=== PATIENT | female | born 1960 | race African-American/Black ===

== ENCOUNTER 2017-02-23 09:37 | Inpatient (IN) ==
[2017-02-23] MEDS ORDERED: CALCIUM CHLORIDE 1,000 MG/10 ML SYRINGE IV STA (09:39)
[2017-02-23] MEDS ORDERED: ONDANSETRON 4 MG/2 ML VIAL IV STA (09:39)
[2017-02-23] MEDS ORDERED: SODIUM BICARBONATE 50 MEQ/50 ML VIAL IV STA (09:41)
[2017-02-23 09:54] LABS: Basophils % 0.2 % (0.0-0.8); Eosinophils # 0.1 10*3/uL (0.0-0.87); Eosinophils % 1.2 % (0.00-10.9); Hematocrit 32.2 VOL% (35.7-47.0); Immature Granulocytes % 0.5 %; Immature Granulocytes Absolute 0.05 #; Lymphocytes # 2.2 10*3/uL (1.4-4.0); Lymphocytes % 23.8 % (21.3-54.2); Mean Corpuscular HGB Conc 31.1 GM/DL (32-36); Mean Corpuscular Hemoglobin 27 PG (27-34); Mean Platelet Volume 12.3 FL (9.6-12.0); Monocytes # 0.5 10*3/uL (0.11-0.8); Monocytes % 5.4 % (1.7-12.7); Neutrophils # 6.4 10*3/uL (1.4-7.4); Neutrophils % 68.9 % (38.7-73.9); Platelet Count 136 T/CUMM (130-400); Red Blood Count 3.66 MC/CUMM (3.8-5.5); Red Cell Distribution Width 15.6 % (9.3-17.3); White Blood Count 9.3 T/CUMM (4-12)
[2017-02-23 10:03] LABS: INR 1.1; PT Patient Result 11.4 SECS
[2017-02-23 10:09] LABS: ABG Base Excess 2.3 MMOL/L (-2.5-2.5); ABG HCO3 26.3 MMOL/L (20-26); ABG Oxygen Saturation 90.2 % (95-100); ABG PCO2 41.4 MM HG (35-48); ABG PH 7.421 (7.35-7.45); ABG TCO2 24.7 MMOL/L (23-27)
[2017-02-23 11:30] LABS: Alanine Aminotransferase 69 U/L (13-56); Albumin 3.7 G/DL (3.4-5.0); Alkaline Phosphatase 93 U/L (45-117); Aspartate Amino Transferase 88 U/L (0-37); Blood Urea Nitrogen 55 MG/DL (7-18); Calcium 9.2 MG/DL (8.5-10.1); Glucose 254 MG/DL (74-106); Magnesium 2.4 MG/DL (1.8-2.4); Sodium 136 MMOL/L (136-145); Total Protein 7.6 G/DL (6.4-8.3); Troponin I Only < 0.015 NG/ML (0.00-0.045)
[2017-02-23] MEDS ORDERED: ALBUTEROL 2.5 MG/3 ML NEB RESP TX PRN (13:51)
[2017-02-23] MEDS ORDERED: ONDANSETRON 4 MG/2 ML VIAL IV PRN (13:51)
[2017-02-23] MEDS ORDERED: GLUCAGON 1 MG VIAL IM PRN (14:43)
[2017-02-23] MEDS ORDERED: DEXTROSE 50% 25 GM/50 ML VIAL IV PRN (14:43)
[2017-02-23] MEDS ORDERED: CALCIUM GLUCONATE 1,000 MG in SODIUM CHLORIDE 0.9% 100 ML IV ONE (15:00)
[2017-02-23 15:18] LABS: Calcium 8.7 MG/DL (8.5-10.1); Magnesium 2.2 MG/DL (1.8-2.4); Osmolality,Calculated 283.8 MOS/KG (273-304); Potassium 5.9 MMOL/L (3.5-5.1)
[2017-02-23] MEDS ORDERED: hydrALAZINE 20 MG/1 ML VIAL IV PRN (16:08)
[2017-02-23] MEDS: INSULIN LISPRO 100 UNIT/ML SUBCUT SCH ×2 (16:21→22:07)
[2017-02-23] MEDS: amLODIPine 10 MG TABLET PO SCH (16:23)
[2017-02-23] MEDS: CINACALCET 30 MG TABLET PO SCH (18:13)
[2017-02-23] MEDS: CALCIUM ACETATE 667 MG CAPSULE PO SCH (18:13)
[2017-02-23] MEDS ORDERED: ALUMINUM/MAGNES/SIMETH MAX STR 30 ML UDCUP PO PRN (22:06)
[2017-02-23] MEDS: INSULIN GLARGINE 100 UNIT/ML SUBCUT SCH (22:07)
[2017-02-23] MEDS ORDERED: ACETAMINOPHEN 325 MG TABLET PO PRN (23:54)
[2017-02-24 05:43] LABS: Basophils % 0.3 % (0.0-0.8); Eosinophils # 0.1 10*3/uL (0.0-0.87); Eosinophils % 2.2 % (0.00-10.9); Hematocrit 29.3 VOL% (35.7-47.0); Hemoglobin 9.1 GM/DL (12.0-16.0); Immature Granulocytes % 0.5 %; Immature Granulocytes Absolute 0.03 #; Lymphocytes # 1.2 10*3/uL (1.4-4.0); Lymphocytes % 21.4 % (21.3-54.2); Mean Corpuscular HGB Conc 31.1 GM/DL (32-36); Mean Corpuscular Hemoglobin 27 PG (27-34); Mean Corpuscular Volume 86.7 FL (87-102); Mean Platelet Volume 11.9 FL (9.6-12.0); Monocytes # 0.4 10*3/uL (0.11-0.8); Monocytes % 7.2 % (1.7-12.7); Neutrophils % 68.4 % (38.7-73.9); Platelet Count 161 T/CUMM (130-400); Red Blood Count 3.38 MC/CUMM (3.8-5.5); Red Cell Distribution Width 15.3 % (9.3-17.3); White Blood Count 5.8 T/CUMM (4-12)
[2017-02-24 06:11] LABS: Calcium 8.5 MG/DL (8.5-10.1); Osmolality,Calculated 279.7 MOS/KG (273-304); Potassium 5.5 MMOL/L (3.5-5.1)
[2017-02-24] MEDS: INSULIN LISPRO 100 UNIT/ML SUBCUT SCH ×4 (09:14→21:44)
[2017-02-24] MEDS: DOXAZOSIN 1 MG TABLET PO SCH (09:19)
[2017-02-24] MEDS: amLODIPine 10 MG TABLET PO SCH (09:19)
[2017-02-24] MEDS: CALCIUM ACETATE 667 MG CAPSULE PO SCH ×3 (09:19→17:31)
[2017-02-24] MEDS: SERTRALINE 50 MG TABLET PO SCH (09:19)
[2017-02-24] MEDS: CARVEDILOL 25 MG TABLET PO SCH (09:20)
[2017-02-24] MEDS: PANTOPRAZOLE 40 MG TABLET PO SCH (09:20)
[2017-02-24] MEDS: GABAPENTIN 600 MG TABLET PO SCH (09:20)
[2017-02-24] MEDS: CINACALCET 30 MG TABLET PO SCH (17:31)
[2017-02-24] MEDS: INSULIN GLARGINE 100 UNIT/ML SUBCUT SCH (21:44)
[2017-02-25 06:46] LABS: Basophils % 0.4 % (0.0-0.8); Eosinophils # 0.1 10*3/uL (0.0-0.87); Eosinophils % 2.7 % (0.00-10.9); Hematocrit 28.6 VOL% (35.7-47.0); Hemoglobin 9.1 GM/DL (12.0-16.0); Immature Granulocytes % 0.6 %; Immature Granulocytes Absolute 0.03 #; Lymphocytes # 1.2 10*3/uL (1.4-4.0); Lymphocytes % 22.2 % (21.3-54.2); Mean Corpuscular HGB Conc 31.8 GM/DL (32-36); Mean Corpuscular Hemoglobin 28 PG (27-34); Mean Corpuscular Volume 87.2 FL (87-102); Mean Platelet Volume 11.7 FL (9.6-12.0); Monocytes # 0.5 10*3/uL (0.11-0.8); Monocytes % 8.6 % (1.7-12.7); Neutrophils # 3.4 10*3/uL (1.4-7.4); Neutrophils % 65.5 % (38.7-73.9); Platelet Count 151 T/CUMM (130-400); Red Blood Count 3.28 MC/CUMM (3.8-5.5); Red Cell Distribution Width 15.3 % (9.3-17.3); White Blood Count 5.2 T/CUMM (4-12)
[2017-02-25 07:10] LABS: Calcium 7.9 MG/DL (8.5-10.1); Osmolality,Calculated 288.7 MOS/KG (273-304)
[2017-02-25 07:11] LABS: Potassium 6.1 MMOL/L (3.5-5.1)
[2017-02-25 08:32] VITALS: BP 141/67
[2017-02-25] MEDS: INSULIN LISPRO 100 UNIT/ML SUBCUT SCH ×2 (11:45→14:35)
[2017-02-25] MEDS: CALCIUM ACETATE 667 MG CAPSULE PO SCH ×2 (11:45→14:23)
[2017-02-25] MEDS: amLODIPine 10 MG TABLET PO SCH (14:23)
[2017-02-25] MEDS: CARVEDILOL 25 MG TABLET PO SCH (14:24)
[2017-02-25] MEDS: SERTRALINE 50 MG TABLET PO SCH (14:24)
[2017-02-25] MEDS: GABAPENTIN 600 MG TABLET PO SCH (14:24)
[2017-02-25] MEDS: PANTOPRAZOLE 40 MG TABLET PO SCH (14:24)
[2017-02-25] MEDS: DOXAZOSIN 1 MG TABLET PO SCH (14:24)
== END 2017-02-25 17:20 | disposition home or self-care (01) | DRG 640 ==
LOC: N.ED 09:37 → EDUNIT# 09:37 → SUATTDRO 11:53 → N.EDINP 11:53 → N.ICU 13:42 → N.5E 02-24 15:52
PROVIDERS: ADMIT Internal Medicine; ATTEND Internal Medicine Nephrology

== ENCOUNTER 2018-01-04 09:09 | Inpatient (IN) ==
[2018-01-04] MEDS ORDERED: ONDANSETRON 4 MG/2 ML VIAL IV STA (09:21)
[2018-01-04] MEDS ORDERED: INSULIN REGULAR 100 UNIT/ML ONE (09:25)
[2018-01-04] MEDS ORDERED: EPINEPHrine 1 MG/10 ML SYRINGE IV STA ×2 (09:32→09:34)
[2018-01-04] MEDS ORDERED: VECURONIUM 10 MG VIAL IV STA (09:33)
[2018-01-04] MEDS ORDERED: ETOMIDATE 20 MG/10 ML VIAL IV STA (09:33)
[2018-01-04] MEDS ORDERED: CALCIUM CHLORIDE 1,000 MG/10 ML SYRINGE IV STA (09:33)
[2018-01-04] MEDS ORDERED: DEXTROSE 50% 25 GM/50 ML VIAL IV STA (09:34)
[2018-01-04] MEDS ORDERED: SODIUM BICARBONATE 50 MEQ/50 ML VIAL IV STA (09:34)
[2018-01-04] MEDS ORDERED: INSULIN REGULAR 100 UNIT/ML IV STA (09:34)
[2018-01-04] MEDS ORDERED: ROCURONIUM 100 MG/10 ML VIAL IV STA (09:35)
[2018-01-04] MEDS ORDERED: ONDANSETRON 4 MG/2 ML VIAL ONE (09:40)
[2018-01-04 09:51] LABS: Basophils % 0.3 % (0.0-0.8); Eosinophils # 0.1 10*3/uL (0.0-0.87); Hematocrit 31.4 VOL% (35.7-47.0); Hemoglobin 9.7 GM/DL (12.0-16.0); Immature Granulocytes % 0.7 %; Immature Granulocytes Absolute 0.05 #; Lymphocytes # 2.8 10*3/uL (1.4-4.0); Lymphocytes % 38.6 % (21.3-54.2); Mean Corpuscular HGB Conc 30.9 GM/DL (32-36); Mean Corpuscular Hemoglobin 29 PG (27-34); Mean Corpuscular Volume 92.4 FL (87-102); Mean Platelet Volume 13.5 FL (9.6-12.0); Monocytes # 0.2 10*3/uL (0.11-0.8); Monocytes % 3.2 % (1.7-12.7); Neutrophils % 56.2 % (38.7-73.9); Platelet Count 95 T/CUMM (130-400); White Blood Count 7.1 T/CUMM (4-12)
[2018-01-04] MEDS ORDERED: LIDOCAINE 1% 20 ML VIAL ONE (10:15)
[2018-01-04 10:16] LABS: Albumin 2.8 G/DL (3.4-5.0); Bilirubin,Total 0.4 MG/DL (0.2-1.0); Hypochromasia 1+; Thyroid Stimulating Hormone 2.95 uIU/ml (0.358-3.74); Total Protein 6.6 G/DL (6.4-8.3)
[2018-01-04 10:28] LABS: Osmolality,Calculated 324.4 MOS/KG (273-304); Potassium 3.8 MMOL/L (3.5-5.1)
[2018-01-04 11:05] LABS: PT Patient Result 10.9 SECS
[2018-01-04] MEDS ORDERED: LACTULOSE 20 GM/30 ML UDCUP PO PRN (11:46)
[2018-01-04] MEDS ORDERED: ACETAMINOPHEN 325 MG TABLET PO PRN (11:46)
[2018-01-04] MEDS ORDERED: ALBUTEROL 2.5 MG/3 ML NEB RESP TX PRN (11:46)
[2018-01-04] MEDS ORDERED: ONDANSETRON 4 MG/2 ML VIAL IV PRN (11:46)
[2018-01-04] MEDS ORDERED: PANTOPRAZOLE 40 MG VIAL IV SCH (12:00)
[2018-01-04] MEDS ORDERED: INSULIN LISPRO 100 UNIT/ML SUBCUT SCH (12:00)
[2018-01-04] MEDS ORDERED: ENOXAPARIN 30 MG/0.3 ML SYRINGE SUBCUT SCH (12:00)
[2018-01-04] MEDS: PROPOFOL 1,000 MG/100 ML BOTTLE IV SCH (12:18)
[2018-01-04 12:20] LABS: Allen Test Positive; Pt O2 Delivery Device Ventilator
[2018-01-04 12:21] LABS: ABG Base Excess -3.7 MMOL/L (-2.5-2.5); ABG HCO3 21.4 MMOL/L (20-26); ABG Oxygen Saturation 99.8 % (95-100); ABG PCO2 39.2 MM HG (35-48); ABG PH 7.349 (7.35-7.45); ABG TCO2 19.7 MMOL/L (23-27)
[2018-01-04] MEDS ORDERED: LORazepam 2 MG/1 ML VIAL ONE (13:38)
[2018-01-04] MEDS ORDERED: LORazepam 2 MG/1 ML VIAL IV ONE (13:40)
[2018-01-04] MEDS ORDERED: GLUCAGON 1 MG VIAL IM PRN (14:14)
[2018-01-04] MEDS ORDERED: DEXTROSE 50% 25 GM/50 ML VIAL IV PRN (14:14)
[2018-01-04] MEDS ORDERED: POTASSIUM CHLORIDE RIDER 20 MEQ in PREMIX 1 EACH IV PRN (14:20)
[2018-01-04] MEDS ORDERED: MAGNESIUM SULF RIDER 1 GM in PREMIX 1 EACH IV PRN (14:24)
[2018-01-04 14:45] LABS: Calcium 9.1 MG/DL (8.5-10.1); Osmolality,Calculated 305.1 MOS/KG (273-304)
[2018-01-04 14:53] LABS: INR 1.1; PT Patient Result 11.6 SECS
[2018-01-04 15:16] LABS: Potassium 8.2 MMOL/L (3.5-5.1)
[2018-01-04 15:21] LABS: Troponin I 0.182 NG/ML (0.00-0.045)
[2018-01-04] MEDS ORDERED: CALCIUM GLUCONATE 1,000 MG/10 ML VIAL IV ONE (15:21)
[2018-01-04] MEDS ORDERED: SODIUM BICARBONATE 50 MEQ/50 ML SYRINGE IV ONE ×2 (15:21→15:36)
[2018-01-04] MEDS: CISATRACURIUM 200 MG in SODIUM CHLORIDE 0.9% 180 ML IV SCH (15:33)
[2018-01-04] MEDS: fentaNYL INJ 1,250 MCG in SODIUM CHLORIDE 0.9% 225 ML IV PRN ×2 (15:34→21:39)
[2018-01-04] MEDS ORDERED: CALCIUM GLUCONATE 1,000 MG in SODIUM CHLORIDE 0.9% 100 ML IV ONE (15:36)
[2018-01-04] MEDS ORDERED: INSULIN REGULAR 100 UNIT/ML SUBCUT SCH (16:00)
[2018-01-04] MEDS: FAMOTIDINE 20 MG/2 ML VIAL IV SCH (16:12)
[2018-01-04] MEDS: INSULIN REGULAR 100 UNIT/ML IV SCH ×2 (17:37→21:12)
[2018-01-04] MEDS: MORPHINE 4 MG/1 ML VIAL IV PRN (20:46)
[2018-01-04] MEDS ORDERED: CALCIUM ACETATE 667 MG CAPSULE PO SCH (21:00)
[2018-01-04 21:39] LABS: Basophils % 0.3 % (0.0-0.8); Eosinophils % 0.5 % (0.00-10.9); Hematocrit 35.1 VOL% (35.7-47.0); Immature Granulocytes % 0.8 %; Immature Granulocytes Absolute 0.05 #; Lymphocytes # 0.9 10*3/uL (1.4-4.0); Lymphocytes % 14.6 % (21.3-54.2); Mean Corpuscular HGB Conc 31.3 GM/DL (32-36); Mean Corpuscular Hemoglobin 28 PG (27-34); Mean Corpuscular Volume 90.5 FL (87-102); Mean Platelet Volume 13.4 FL (9.6-12.0); Monocytes # 0.4 10*3/uL (0.11-0.8); Monocytes % 6.8 % (1.7-12.7); Neutrophils # 4.8 10*3/uL (1.4-7.4); Platelet Count 122 T/CUMM (130-400); Red Blood Count 3.88 MC/CUMM (3.8-5.5); White Blood Count 6.3 T/CUMM (4-12)
[2018-01-04] MEDS: MINERAL OIL/PETROLATUM OPH OINT 3.5 GM TUBE BOTH EYES SCH (21:39)
[2018-01-04] MEDS: hydrALAZINE 20 MG/1 ML VIAL IV PRN (21:39)
[2018-01-04 21:46] LABS: INR 1.1; PT Patient Result 11.1 SECS; Partial Thromboplastin Time 25.9 SECS (0-40)
[2018-01-04 21:48] LABS: Calcium 9.6 MG/DL (8.5-10.1); Osmolality,Calculated 282.8 MOS/KG (273-304); Potassium 4.2 MMOL/L (3.5-5.1)
[2018-01-04] MEDS: niCARdipine INJ 25 MG in SODIUM CHLORIDE 0.9% 240 ML IV PRN (22:44)
[2018-01-05] MEDS: fentaNYL INJ 2,500 MCG in SODIUM CHLORIDE 0.9% 450 ML IV PRN ×3 (00:54→19:57)
[2018-01-05] MEDS: PROPOFOL 1,000 MG/100 ML BOTTLE IV SCH ×2 (01:12→17:14)
[2018-01-05] MEDS: INSULIN REGULAR 100 UNIT/ML IV SCH ×8 (01:13→22:32)
[2018-01-05 02:41] LABS: Basophils % 0.3 % (0.0-0.8); Eosinophils % 0.5 % (0.00-10.9); Hematocrit 33.7 VOL% (35.7-47.0); Hemoglobin 10.8 GM/DL (12.0-16.0); Immature Granulocytes % 0.5 %; Immature Granulocytes Absolute 0.03 #; Lymphocytes # 0.7 10*3/uL (1.4-4.0); Lymphocytes % 10.9 % (21.3-54.2); Mean Corpuscular Hemoglobin 29 PG (27-34); Mean Corpuscular Volume 89.4 FL (87-102); Mean Platelet Volume 12.8 FL (9.6-12.0); Monocytes # 0.6 10*3/uL (0.11-0.8); Monocytes % 9.5 % (1.7-12.7); Neutrophils % 78.3 % (38.7-73.9); Platelet Count 100 T/CUMM (130-400); Red Blood Count 3.77 MC/CUMM (3.8-5.5); Red Cell Distribution Width 14.8 % (9.3-17.3); White Blood Count 6.3 T/CUMM (4-12)
[2018-01-05 02:58] LABS: Calcium 8.7 MG/DL (8.5-10.1); Osmolality,Calculated 291.4 MOS/KG (273-304); Potassium 4.3 MMOL/L (3.5-5.1)
[2018-01-05 03:01] LABS: Lactic Acid 1.7 MMOL/L (0.4-2.0)
[2018-01-05 03:09] LABS: INR 1.1; PT Patient Result 11.6 SECS; Partial Thromboplastin Time 24.9 SECS (0-40)
[2018-01-05 04:32] LABS: ABG Base Excess -1.9 MMOL/L (-2.5-2.5); ABG HCO3 22.8 MMOL/L (20-26); ABG Oxygen Saturation 99.3 % (95-100); ABG PH 7.472 (7.35-7.45); ABG TCO2 17.7 MMOL/L (23-27)
[2018-01-05 04:40] LABS: Basophils % 0.4 % (0.0-0.8); Eosinophils % 0.6 % (0.00-10.9); Hematocrit 32.7 VOL% (35.7-47.0); Hemoglobin 10.2 GM/DL (12.0-16.0); Immature Granulocytes % 0.4 %; Immature Granulocytes Absolute 0.02 #; Lymphocytes # 0.7 10*3/uL (1.4-4.0); Lymphocytes % 13.1 % (21.3-54.2); Mean Corpuscular HGB Conc 31.2 GM/DL (32-36); Mean Corpuscular Hemoglobin 28 PG (27-34); Mean Corpuscular Volume 90.8 FL (87-102); Mean Platelet Volume 12.6 FL (9.6-12.0); Monocytes # 0.5 10*3/uL (0.11-0.8); Monocytes % 9.1 % (1.7-12.7); Neutrophils # 4.1 10*3/uL (1.4-7.4); Neutrophils % 76.4 % (38.7-73.9); Platelet Count 104 T/CUMM (130-400); Red Cell Distribution Width 14.9 % (9.3-17.3); White Blood Count 5.4 T/CUMM (4-12)
[2018-01-05 05:02] LABS: Albumin 2.9 G/DL (3.4-5.0); Bilirubin,Total 0.5 MG/DL (0.2-1.0); Calcium 8.8 MG/DL (8.5-10.1); Osmolality,Calculated 287.7 MOS/KG (273-304); Potassium 4.3 MMOL/L (3.5-5.1); Total Protein 6.8 G/DL (6.4-8.3)
[2018-01-05] MEDS: fentaNYL INJ 1,250 MCG in SODIUM CHLORIDE 0.9% 225 ML IV PRN (08:44)
[2018-01-05] MEDS: CISATRACURIUM 200 MG in SODIUM CHLORIDE 0.9% 180 ML IV SCH ×2 (08:50→17:15)
[2018-01-05 08:56] LABS: INR 1.1; PT Patient Result 11.5 SECS
[2018-01-05 11:05] LABS: Basophils % 0.4 % (0.0-0.8); Eosinophils # 0.1 10*3/uL (0.0-0.87); Eosinophils % 1.5 % (0.00-10.9); Hematocrit 32.8 VOL% (35.7-47.0); Hemoglobin 10.5 GM/DL (12.0-16.0); Immature Granulocytes % 0.4 %; Immature Granulocytes Absolute 0.02 #; Lymphocytes # 0.6 10*3/uL (1.4-4.0); Lymphocytes % 11.9 % (21.3-54.2); Mean Corpuscular Hemoglobin 29 PG (27-34); Mean Corpuscular Volume 89.9 FL (87-102); Monocytes # 0.4 10*3/uL (0.11-0.8); Monocytes % 8.9 % (1.7-12.7); Neutrophils # 3.7 10*3/uL (1.4-7.4); Neutrophils % 76.9 % (38.7-73.9); Platelet Count 105 T/CUMM (130-400); Red Blood Count 3.65 MC/CUMM (3.8-5.5); Red Cell Distribution Width 14.7 % (9.3-17.3); White Blood Count 4.8 T/CUMM (4-12)
[2018-01-05] MEDS: MINERAL OIL/PETROLATUM OPH OINT 3.5 GM TUBE BOTH EYES SCH ×3 (11:28→20:58)
[2018-01-05 11:32] LABS: Calcium 8.4 MG/DL (8.5-10.1); Osmolality,Calculated 291.5 MOS/KG (273-304); Potassium 4.7 MMOL/L (3.5-5.1)
[2018-01-05] MEDS: hydrALAZINE 20 MG/1 ML VIAL IV PRN (11:51)
[2018-01-05 14:26] LABS: INR 1.1; PT Patient Result 11.7 SECS; Partial Thromboplastin Time 25.9 SECS (0-40)
[2018-01-05] MEDS: FAMOTIDINE 20 MG/2 ML VIAL IV SCH (15:12)
[2018-01-05] MEDS: NOREPINEPHRINE 16 MG in SODIUM CHLORIDE 0.9% 234 ML IV PRN (16:04)
[2018-01-05 16:13] LABS: Basophils % 0.4 % (0.0-0.8); Eosinophils # 0.1 10*3/uL (0.0-0.87); Eosinophils % 1.5 % (0.00-10.9); Hematocrit 33.9 VOL% (35.7-47.0); Immature Granulocytes % 0.6 %; Immature Granulocytes Absolute 0.03 #; Lymphocytes # 0.6 10*3/uL (1.4-4.0); Lymphocytes % 13.2 % (21.3-54.2); Mean Corpuscular HGB Conc 32.4 GM/DL (32-36); Mean Corpuscular Hemoglobin 29 PG (27-34); Mean Corpuscular Volume 89.2 FL (87-102); Monocytes # 0.3 10*3/uL (0.11-0.8); Monocytes % 6.9 % (1.7-12.7); Neutrophils # 3.7 10*3/uL (1.4-7.4); Neutrophils % 77.4 % (38.7-73.9); Platelet Count 116 T/CUMM (130-400); Red Cell Distribution Width 14.9 % (9.3-17.3); White Blood Count 4.8 T/CUMM (4-12)
[2018-01-05 16:24] LABS: Calcium 9.7 MG/DL (8.5-10.1); Osmolality,Calculated 276.7 MOS/KG (273-304)
[2018-01-05 22:12] LABS: Basophils % 0.3 % (0.0-0.8); Eosinophils % 0.1 % (0.00-10.9); Hematocrit 33.7 VOL% (35.7-47.0); Immature Granulocytes % 0.4 %; Immature Granulocytes Absolute 0.03 #; Lymphocytes # 0.3 10*3/uL (1.4-4.0); Lymphocytes % 3.7 % (21.3-54.2); Mean Corpuscular HGB Conc 32.6 GM/DL (32-36); Mean Corpuscular Hemoglobin 29 PG (27-34); Mean Corpuscular Volume 89.4 FL (87-102); Mean Platelet Volume 13.2 FL (9.6-12.0); Monocytes # 0.6 10*3/uL (0.11-0.8); Monocytes % 7.8 % (1.7-12.7); Neutrophils # 6.9 10*3/uL (1.4-7.4); Neutrophils % 87.7 % (38.7-73.9); Platelet Count 107 T/CUMM (130-400); Red Blood Count 3.77 MC/CUMM (3.8-5.5); Red Cell Distribution Width 14.8 % (9.3-17.3); White Blood Count 7.8 T/CUMM (4-12)
[2018-01-05 22:21] LABS: INR 1.1; PT Patient Result 11.8 SECS; Partial Thromboplastin Time 26.4 SECS (0-40)
[2018-01-05 22:29] LABS: Calcium 8.8 MG/DL (8.5-10.1); Osmolality,Calculated 281.7 MOS/KG (273-304); Potassium 3.9 MMOL/L (3.5-5.1)
[2018-01-05 22:35] LABS: Band Neutrophils 2 % (0-10); Lymphocytes 4 % (20-55); Segmented Neutrophils 86 % (50-85)
[2018-01-05 22:38] LABS: Hypochromasia Slight; Platelet Estimate Adequate
[2018-01-05 22:39] LABS: Total Cells Counted 100
[2018-01-06] MEDS: hydrALAZINE 20 MG/1 ML VIAL IV PRN ×2 (00:09→08:48)
[2018-01-06] MEDS ORDERED: HEPARIN/NACL 0.9% 2 UNITS/ML 500 ML IV ONE (00:13)
[2018-01-06] MEDS: INSULIN REGULAR 100 UNIT/ML IV SCH ×8 (00:27→20:13)
[2018-01-06] MEDS: PROPOFOL 1,000 MG/100 ML BOTTLE IV SCH ×4 (00:34→19:54)
[2018-01-06 02:01] LABS: Basophils % 0.2 % (0.0-0.8); Eosinophils % 0.1 % (0.00-10.9); Hematocrit 34.9 VOL% (35.7-47.0); Hemoglobin 11.3 GM/DL (12.0-16.0); Immature Granulocytes % 0.4 %; Immature Granulocytes Absolute 0.04 #; Lymphocytes # 0.5 10*3/uL (1.4-4.0); Lymphocytes % 5.6 % (21.3-54.2); Mean Corpuscular HGB Conc 32.4 GM/DL (32-36); Mean Corpuscular Hemoglobin 29 PG (27-34); Mean Corpuscular Volume 89.5 FL (87-102); Mean Platelet Volume 12.9 FL (9.6-12.0); Monocytes # 0.7 10*3/uL (0.11-0.8); Neutrophils # 8.3 10*3/uL (1.4-7.4); Neutrophils % 86.7 % (38.7-73.9); Platelet Count 127 T/CUMM (130-400); Red Cell Distribution Width 15.1 % (9.3-17.3); White Blood Count 9.6 T/CUMM (4-12)
[2018-01-06 02:11] LABS: INR 1.1; PT Patient Result 11.6 SECS; Partial Thromboplastin Time 26.4 SECS (0-40)
[2018-01-06 02:20] LABS: Albumin 2.9 G/DL (3.4-5.0); Bilirubin,Total 0.5 MG/DL (0.2-1.0); Calcium 8.9 MG/DL (8.5-10.1); Lactic Acid 1.6 MMOL/L (0.4-2.0); Osmolality,Calculated 285.5 MOS/KG (273-304); Potassium 4.3 MMOL/L (3.5-5.1); Total Protein 7.1 G/DL (6.4-8.3)
[2018-01-06] MEDS: fentaNYL INJ 2,500 MCG in SODIUM CHLORIDE 0.9% 450 ML IV PRN ×3 (02:45→19:37)
[2018-01-06] MEDS: CISATRACURIUM 200 MG in SODIUM CHLORIDE 0.9% 180 ML IV SCH (04:18)
[2018-01-06 04:37] LABS: ABG Base Excess -8.3 MMOL/L (-2.5-2.5); ABG HCO3 17.8 MMOL/L (20-26); ABG Oxygen Saturation 98.6 % (95-100); ABG PCO2 31.3 MM HG (35-48); ABG PH 7.331 (7.35-7.45); ABG TCO2 14.3 MMOL/L (23-27)
[2018-01-06 08:49] LABS: ABG Base Excess -5.9 MMOL/L (-2.5-2.5); ABG HCO3 19.6 MMOL/L (20-26); ABG Oxygen Saturation 99.2 % (95-100); ABG PCO2 32.4 MM HG (35-48); ABG PH 7.367 (7.35-7.45); ABG TCO2 16.8 MMOL/L (23-27)
[2018-01-06 08:54] LABS: Basophils % 0.1 % (0.0-0.8); Hematocrit 32.4 VOL% (35.7-47.0); Hemoglobin 10.2 GM/DL (12.0-16.0); Immature Granulocytes % 0.6 %; Immature Granulocytes Absolute 0.05 #; Lymphocytes # 0.6 10*3/uL (1.4-4.0); Lymphocytes % 6.9 % (21.3-54.2); Mean Corpuscular HGB Conc 31.5 GM/DL (32-36); Mean Corpuscular Hemoglobin 29 PG (27-34); Mean Corpuscular Volume 91.8 FL (87-102); Mean Platelet Volume 13.2 FL (9.6-12.0); Monocytes # 0.6 10*3/uL (0.11-0.8); Monocytes % 7.4 % (1.7-12.7); Neutrophils # 7.3 10*3/uL (1.4-7.4); Platelet Count 125 T/CUMM (130-400); Red Blood Count 3.53 MC/CUMM (3.8-5.5); Red Cell Distribution Width 15.2 % (9.3-17.3); White Blood Count 8.6 T/CUMM (4-12)
[2018-01-06] MEDS: MINERAL OIL/PETROLATUM OPH OINT 3.5 GM TUBE BOTH EYES SCH ×3 (08:57→20:14)
[2018-01-06 09:06] LABS: INR 1.1; PT Patient Result 11.7 SECS; Partial Thromboplastin Time 27.2 SECS (0-40)
[2018-01-06 09:16] LABS: Alanine Aminotransferase 89 U/L (13-56); Albumin 2.8 G/DL (3.4-5.0); Alkaline Phosphatase 65 U/L (45-117); Aspartate Amino Transferase 50 U/L (0-37); Blood Urea Nitrogen 37 MG/DL (7-18); Calcium 8.1 MG/DL (8.5-10.1); Glucose 148 MG/DL (74-106); Osmolality,Calculated 286.7 MOS/KG (273-304); Potassium 5.2 MMOL/L (3.5-5.1); Sodium 138 MMOL/L (136-145); Total Protein 6.2 G/DL (6.4-8.3)
[2018-01-06] MEDS ORDERED: ALBUMIN 25% 25 GM in PREMIX 1 EACH IV ONE ×2 (10:30→12:00)
[2018-01-06] MEDS: FAMOTIDINE 20 MG/2 ML VIAL IV SCH (16:15)
[2018-01-06] MEDS: MEROPENEM 500 MG in SODIUM CHLORIDE 0.9% 100 ML IV SCH (16:16)
[2018-01-06] MEDS: NOREPINEPHRINE 16 MG in SODIUM CHLORIDE 0.9% 234 ML IV PRN (16:25)
[2018-01-06] MEDS: LORazepam 2 MG/1 ML VIAL IV PRN (19:38)
[2018-01-07] MEDS: INSULIN REGULAR 100 UNIT/ML IV SCH ×3 (00:25→09:21)
[2018-01-07] MEDS: LORazepam 2 MG/1 ML VIAL IV PRN ×3 (00:26→21:34)
[2018-01-07 03:48] LABS: ABG HCO3 21.9 MMOL/L (20-26); ABG Oxygen Saturation 99.1 % (95-100); ABG PCO2 39.7 MM HG (35-48); ABG PH 7.356 (7.35-7.45); ABG TCO2 20.6 MMOL/L (23-27)
[2018-01-07 03:58] LABS: Basophils % 0.1 % (0.0-0.8); Eosinophils # 0.1 10*3/uL (0.0-0.87); Eosinophils % 0.7 % (0.00-10.9); Hematocrit 27.7 VOL% (35.7-47.0); Hemoglobin 8.6 GM/DL (12.0-16.0); Immature Granulocytes % 0.4 %; Immature Granulocytes Absolute 0.03 #; Lymphocytes # 0.8 10*3/uL (1.4-4.0); Lymphocytes % 9.5 % (21.3-54.2); Mean Corpuscular Hemoglobin 29 PG (27-34); Monocytes # 1.1 10*3/uL (0.11-0.8); Monocytes % 13.2 % (1.7-12.7); Neutrophils # 6.4 10*3/uL (1.4-7.4); Neutrophils % 76.1 % (38.7-73.9); Platelet Count 113 T/CUMM (130-400); Red Blood Count 2.98 MC/CUMM (3.8-5.5); Red Cell Distribution Width 15.4 % (9.3-17.3); White Blood Count 8.4 T/CUMM (4-12)
[2018-01-07 04:23] LABS: Calcium 8.4 MG/DL (8.5-10.1); Osmolality,Calculated 280.7 MOS/KG (273-304); Potassium 3.9 MMOL/L (3.5-5.1)
[2018-01-07] MEDS: fentaNYL INJ 2,500 MCG in SODIUM CHLORIDE 0.9% 450 ML IV PRN ×2 (04:44→23:51)
[2018-01-07] MEDS: MINERAL OIL/PETROLATUM OPH OINT 3.5 GM TUBE BOTH EYES SCH ×3 (09:16→22:51)
[2018-01-07] MEDS: PROPOFOL 1,000 MG/100 ML BOTTLE IV SCH (11:51)
[2018-01-07] MEDS: ENOXAPARIN 30 MG/0.3 ML SYRINGE SUBCUT SCH (11:51)
[2018-01-07] MEDS: INSULIN REGULAR 100 UNIT/ML SUBCUT SCH ×3 (11:52→22:51)
[2018-01-07] MEDS: MEROPENEM 500 MG in SODIUM CHLORIDE 0.9% 100 ML IV SCH (15:11)
[2018-01-07] MEDS: FAMOTIDINE 20 MG/2 ML VIAL IV SCH (15:11)
[2018-01-08] MEDS: LORazepam 2 MG/1 ML VIAL IV PRN ×3 (00:18→19:22)
[2018-01-08] MEDS: INSULIN REGULAR 100 UNIT/ML SUBCUT SCH ×6 (01:29→20:20)
[2018-01-08 04:45] LABS: Basophils % 0.3 % (0.0-0.8); Eosinophils # 0.1 10*3/uL (0.0-0.87); Eosinophils % 1.2 % (0.00-10.9); Hematocrit 24.6 VOL% (35.7-47.0); Hemoglobin 7.5 GM/DL (12.0-16.0); Immature Granulocytes % 0.5 %; Immature Granulocytes Absolute 0.03 #; Lymphocytes # 0.9 10*3/uL (1.4-4.0); Lymphocytes % 13.2 % (21.3-54.2); Mean Corpuscular HGB Conc 30.5 GM/DL (32-36); Mean Corpuscular Hemoglobin 29 PG (27-34); Mean Platelet Volume 11.6 FL (9.6-12.0); Monocytes # 0.8 10*3/uL (0.11-0.8); Monocytes % 12.2 % (1.7-12.7); Neutrophils # 4.8 10*3/uL (1.4-7.4); Neutrophils % 72.6 % (38.7-73.9); Platelet Count 109 T/CUMM (130-400); Red Blood Count 2.59 MC/CUMM (3.8-5.5); Red Cell Distribution Width 15.3 % (9.3-17.3); White Blood Count 6.6 T/CUMM (4-12)
[2018-01-08 04:53] LABS: PT Patient Result 10.7 SECS; Partial Thromboplastin Time 27.2 SECS (0-40)
[2018-01-08 05:18] LABS: Albumin 2.8 G/DL (3.4-5.0); Bilirubin,Total 1.3 MG/DL (0.2-1.0); CKMB % 0.6 %; Calcium 8.5 MG/DL (8.5-10.1); Osmolality,Calculated 287.3 MOS/KG (273-304); Total Protein 6.3 G/DL (6.4-8.3)
[2018-01-08 05:25] LABS: Troponin I 0.147 NG/ML (0.00-0.045)
[2018-01-08 08:37] LABS: ABG Base Excess -3.2 MMOL/L (-2.5-2.5); ABG HCO3 21.8 MMOL/L (20-26); ABG Oxygen Saturation 99.2 % (95-100); ABG PCO2 40.5 MM HG (35-48); ABG PH 7.347 (7.35-7.45); ABG TCO2 20.8 MMOL/L (23-27)
[2018-01-08] MEDS: MINERAL OIL/PETROLATUM OPH OINT 3.5 GM TUBE BOTH EYES SCH ×3 (09:30→22:06)
[2018-01-08] MEDS: PROPOFOL 1,000 MG/100 ML BOTTLE IV SCH (13:40)
[2018-01-08] MEDS: ENOXAPARIN 30 MG/0.3 ML SYRINGE SUBCUT SCH (14:46)
[2018-01-08] MEDS: MEROPENEM 500 MG in SODIUM CHLORIDE 0.9% 100 ML IV SCH (14:46)
[2018-01-08] MEDS: FAMOTIDINE 20 MG/2 ML VIAL IV SCH (14:47)
[2018-01-08] MEDS: fentaNYL INJ 2,500 MCG in SODIUM CHLORIDE 0.9% 450 ML IV PRN (22:30)
[2018-01-09] MEDS: INSULIN REGULAR 100 UNIT/ML SUBCUT SCH ×6 (02:27→20:00)
[2018-01-09] MEDS: LORazepam 2 MG/1 ML VIAL IV PRN (03:43)
[2018-01-09] MEDS: MORPHINE 4 MG/1 ML VIAL IV PRN (03:44)
[2018-01-09 04:00] LABS: ABG Base Excess -3.7 MMOL/L (-2.5-2.5); ABG HCO3 21.3 MMOL/L (20-26); ABG Oxygen Saturation 99.4 % (95-100); ABG PCO2 44.3 MM HG (35-48); ABG PH 7.311 (7.35-7.45); ABG TCO2 21.2 MMOL/L (23-27)
[2018-01-09 04:09] LABS: Basophils % 0.3 % (0.0-0.8); Eosinophils # 0.1 10*3/uL (0.0-0.87); Hematocrit 24.2 VOL% (35.7-47.0); Hemoglobin 7.5 GM/DL (12.0-16.0); Immature Granulocytes % 0.6 %; Immature Granulocytes Absolute 0.04 #; Lymphocytes # 1.1 10*3/uL (1.4-4.0); Lymphocytes % 15.8 % (21.3-54.2); Mean Corpuscular Hemoglobin 29 PG (27-34); Mean Corpuscular Volume 93.1 FL (87-102); Mean Platelet Volume 11.9 FL (9.6-12.0); Monocytes # 0.9 10*3/uL (0.11-0.8); Monocytes % 13.1 % (1.7-12.7); Neutrophils # 4.5 10*3/uL (1.4-7.4); Neutrophils % 68.2 % (38.7-73.9); Platelet Count 143 T/CUMM (130-400); Red Cell Distribution Width 15.3 % (9.3-17.3); White Blood Count 6.7 T/CUMM (4-12)
[2018-01-09 04:27] LABS: Albumin 2.8 G/DL (3.4-5.0); Bilirubin,Total 0.8 MG/DL (0.2-1.0); Calcium 8.7 MG/DL (8.5-10.1); Osmolality,Calculated 293.1 MOS/KG (273-304); Potassium 4.2 MMOL/L (3.5-5.1); Total Protein 6.5 G/DL (6.4-8.3)
[2018-01-09] MEDS: MINERAL OIL/PETROLATUM OPH OINT 3.5 GM TUBE BOTH EYES SCH ×3 (08:51→21:18)
[2018-01-09] MEDS: ENOXAPARIN 30 MG/0.3 ML SYRINGE SUBCUT SCH (14:00)
[2018-01-09] MEDS: fentaNYL INJ 2,500 MCG in SODIUM CHLORIDE 0.9% 450 ML IV PRN (14:41)
[2018-01-09] MEDS: MEROPENEM 500 MG in SODIUM CHLORIDE 0.9% 100 ML IV SCH (14:50)
[2018-01-09] MEDS: FAMOTIDINE 20 MG/2 ML VIAL IV SCH (14:50)
[2018-01-09] MEDS: amLODIPine 10 MG TABLET PO SCH (14:50)
[2018-01-09] MEDS: PROPOFOL 1,000 MG/100 ML BOTTLE IV SCH ×2 (17:33→21:05)
[2018-01-09] MEDS ORDERED: HEPARIN/NACL 0.9% 2 UNITS/ML 500 ML IV ONE (21:49)
[2018-01-09] MEDS: NOREPINEPHRINE 16 MG in SODIUM CHLORIDE 0.9% 234 ML IV PRN (22:06)
[2018-01-10] MEDS: INSULIN REGULAR 100 UNIT/ML SUBCUT SCH ×6 (00:18→20:26)
[2018-01-10] MEDS: fentaNYL INJ 2,500 MCG in SODIUM CHLORIDE 0.9% 450 ML IV PRN (01:36)
[2018-01-10 05:18] LABS: ABG Base Excess -0.4 MMOL/L (-2.5-2.5); ABG HCO3 24.1 MMOL/L (20-26); ABG Oxygen Saturation 99.3 % (95-100); ABG PCO2 43.1 MM HG (35-48); ABG PH 7.369 (7.35-7.45); ABG TCO2 23.5 MMOL/L (23-27); Basophils % 0.3 % (0.0-0.8); Eosinophils # 0.2 10*3/uL (0.0-0.87); Eosinophils % 2.9 % (0.00-10.9); Hematocrit 23.4 VOL% (35.7-47.0); Hemoglobin 7.3 GM/DL (12.0-16.0); Immature Granulocytes % 2.4 %; Immature Granulocytes Absolute 0.14 #; Lymphocytes # 0.9 10*3/uL (1.4-4.0); Lymphocytes % 14.8 % (21.3-54.2); Mean Corpuscular HGB Conc 31.2 GM/DL (32-36); Mean Corpuscular Hemoglobin 29 PG (27-34); Mean Corpuscular Volume 92.9 FL (87-102); Mean Platelet Volume 11.2 FL (9.6-12.0); Monocytes # 0.9 10*3/uL (0.11-0.8); Monocytes % 14.8 % (1.7-12.7); NRBC # 0.05 10*3/uL; Neutrophils # 3.8 10*3/uL (1.4-7.4); Neutrophils % 64.8 % (38.7-73.9); Platelet Count 164 T/CUMM (130-400); Red Blood Count 2.52 MC/CUMM (3.8-5.5); Red Cell Distribution Width 15.2 % (9.3-17.3); White Blood Count 5.8 T/CUMM (4-12)
[2018-01-10 05:35] LABS: Calcium 8.7 MG/DL (8.5-10.1); Osmolality,Calculated 283.4 MOS/KG (273-304); Potassium 3.8 MMOL/L (3.5-5.1)
[2018-01-10 05:59] LABS: Calcium 8.2 MG/DL (8.5-10.1); Osmolality,Calculated 284.3 MOS/KG (273-304); Prealbumin 15.4 MG/DL (20-40)
[2018-01-10] MEDS: PROPOFOL 1,000 MG/100 ML BOTTLE IV SCH ×2 (07:27→18:16)
[2018-01-10] MEDS: MINERAL OIL/PETROLATUM OPH OINT 3.5 GM TUBE BOTH EYES SCH ×3 (09:26→20:27)
[2018-01-10] MEDS: amLODIPine 10 MG TABLET PO SCH (09:26)
[2018-01-10] MEDS: ENOXAPARIN 30 MG/0.3 ML SYRINGE SUBCUT SCH (11:54)
[2018-01-10] MEDS ORDERED: LIDOCAINE 1%/EPI INJ 20 ML VIAL ONE ×2 (12:16→13:33)
[2018-01-10] MEDS ORDERED: MICROFIBRILLAR COLLAGEN POWDER 1 GM CAN TOP ONE (13:33)
[2018-01-10] MEDS ORDERED: THROMBIN TOPICAL (RECOMBINANT) 5,000 UNIT VIAL TOP ONE (13:33)
[2018-01-10] MEDS ORDERED: PROPOFOL 200 MG/20 ML VIAL IV ONE (14:58)
[2018-01-10] MEDS ORDERED: SEVOFLURANE 1 UNIT/15 MINUTE INH ONE (14:58)
[2018-01-10] MEDS ORDERED: MIDAZOLAM 2 MG/2 ML VIAL ONE (14:59)
[2018-01-10] MEDS ORDERED: ROCURONIUM 100 MG/10 ML VIAL IV ONE (14:59)
[2018-01-10] MEDS: hydrALAZINE 20 MG/1 ML VIAL IV PRN (15:45)
[2018-01-10] MEDS: FAMOTIDINE 20 MG/2 ML VIAL IV SCH (15:57)
[2018-01-10] MEDS: MEROPENEM 500 MG in SODIUM CHLORIDE 0.9% 100 ML IV SCH (15:57)
[2018-01-10] MEDS: METOCLOPRAMIDE 10 MG/10 ML UDCUP PER TUBE SCH ×2 (15:58→18:42)
[2018-01-10] MEDS: niCARdipine INJ 25 MG in SODIUM CHLORIDE 0.9% 240 ML IV PRN (17:01)
[2018-01-11] MEDS: fentaNYL INJ 2,500 MCG in SODIUM CHLORIDE 0.9% 450 ML IV PRN (00:02)
[2018-01-11] MEDS: INSULIN REGULAR 100 UNIT/ML SUBCUT SCH ×4 (00:31→11:45)
[2018-01-11] MEDS: METOCLOPRAMIDE 10 MG/10 ML UDCUP PER TUBE SCH ×3 (00:31→11:09)
[2018-01-11] MEDS: hydrALAZINE 20 MG/1 ML VIAL IV PRN ×2 (01:07→08:36)
[2018-01-11 03:51] LABS: ABG Base Excess -1.3 MMOL/L (-2.5-2.5); ABG HCO3 22.2 MMOL/L (20-26); ABG PCO2 31.8 MM HG (35-48); ABG PH 7.462 (7.35-7.45); ABG PO2 196.1 MM HG (80-95); ABG TCO2 23.2 MMOL/L (23-27); Allen Test Positive; Pt O2 Delivery Device Ventilator
[2018-01-11 05:11] LABS: Basophils % 0.3 % (0.0-0.8); Eosinophils # 0.2 10*3/uL (0.0-0.87); Eosinophils % 2.8 % (0.00-10.9); Hematocrit 23.4 VOL% (35.7-47.0); Hemoglobin 7.4 GM/DL (12.0-16.0); Immature Granulocytes % 4.1 %; Immature Granulocytes Absolute 0.28 #; Lymphocytes # 1.1 10*3/uL (1.4-4.0); Lymphocytes % 15.3 % (21.3-54.2); Mean Corpuscular HGB Conc 31.6 GM/DL (32-36); Mean Corpuscular Hemoglobin 29 PG (27-34); Mean Corpuscular Volume 91.8 FL (87-102); Mean Platelet Volume 11.4 FL (9.6-12.0); NRBC # 0.03 10*3/uL; Neutrophils # 4.3 10*3/uL (1.4-7.4); Neutrophils % 62.5 % (38.7-73.9); Platelet Count 170 T/CUMM (130-400); Red Blood Count 2.55 MC/CUMM (3.8-5.5); Red Cell Distribution Width 15.1 % (9.3-17.3); White Blood Count 6.9 T/CUMM (4-12)
[2018-01-11 05:19] LABS: PT Patient Result 10.6 SECS; Partial Thromboplastin Time 27.7 SECS (0-40)
[2018-01-11 05:37] LABS: Calcium 8.8 MG/DL (8.5-10.1); Osmolality,Calculated 289.4 MOS/KG (273-304)
[2018-01-11] MEDS: MINERAL OIL/PETROLATUM OPH OINT 3.5 GM TUBE BOTH EYES SCH (08:36)
[2018-01-11 09:23] VITALS: BP 178/73
[2018-01-11] MEDS: amLODIPine 10 MG TABLET PO SCH (09:45)
[2018-01-11] MEDS: MORPHINE 4 MG/1 ML VIAL IV PRN (11:06)
[2018-01-11] MEDS: PROPOFOL 1,000 MG/100 ML BOTTLE IV SCH (11:55)
[2018-01-11] MEDS: ENOXAPARIN 30 MG/0.3 ML SYRINGE SUBCUT SCH (12:28)
== END 2018-01-11 14:17 | DRG 4 ==
LOC: EDUNIT# → EDBD → N.ED 09:09 → N.CC 09:32 → SUATTDRO 09:45 → N.EDINP 10:17 → N.CC 11:43
PROVIDERS: ADMIT Internal Medicine; ATTEND Internal Medicine

== ENCOUNTER 2018-05-10 16:44 | Inpatient (IN) ==
[2018-05-10] MEDS ORDERED: ONDANSETRON 4 MG/2 ML VIAL IV STA (17:07)
[2018-05-10 17:40] LABS: Troponin I < 0.015 NG/ML (0.00-0.045)
[2018-05-10 17:43] LABS: Basophils % 0.5 % (0.0-0.8); Eosinophils # 0.1 10*3/uL (0.0-0.87); Eosinophils % 0.8 % (0.00-10.9); Hematocrit 37.8 VOL% (35.7-47.0); Hemoglobin 11.7 GM/DL (12.0-16.0); Immature Granulocytes % 0.6 %; Immature Granulocytes Absolute 0.04 #; Lymphocytes # 1.5 10*3/uL (1.4-4.0); Lymphocytes % 22.2 % (21.3-54.2); Mean Corpuscular Hemoglobin 28 PG (27-34); Mean Corpuscular Volume 89.6 FL (87-102); Mean Platelet Volume 11.9 FL (9.6-12.0); Monocytes # 0.5 10*3/uL (0.11-0.8); Monocytes % 7.6 % (1.7-12.7); Neutrophils # 4.5 10*3/uL (1.4-7.4); Neutrophils % 68.3 % (38.7-73.9); Platelet Count 143 T/CUMM (130-400); Red Blood Count 4.22 MC/CUMM (3.8-5.5); Red Cell Distribution Width 16.2 % (9.3-17.3); White Blood Count 6.6 T/CUMM (4-12)
[2018-05-10 17:43] LABS: Alanine Aminotransferase 24 U/L (13-56); Albumin 3.5 G/DL (3.4-5.0); Alkaline Phosphatase 101 U/L (45-117); Aspartate Amino Transferase 26 U/L (0-37); Bilirubin,Total < 0.39 MG/DL (0.2-1.0); Blood Urea Nitrogen 56 MG/DL (7-18); Glucose 236 MG/DL (74-106); Osmolality,Calculated 287.5 MOS/KG (273-304); Sodium 132 MMOL/L (136-145); Total Protein 8.4 G/DL (6.4-8.3)
[2018-05-10 17:45] LABS: Calcium 9.2 MG/DL (8.5-10.1)
[2018-05-10] MEDS ORDERED: DEXTROSE 50% 25 GM/50 ML VIAL IV STA (17:47)
[2018-05-10] MEDS ORDERED: INSULIN REGULAR 100 UNIT/ML IV STA ×2 (17:47→18:44)
[2018-05-10] MEDS ORDERED: SODIUM BICARBONATE 50 MEQ/50 ML VIAL IV STA (17:47)
[2018-05-10] MEDS ORDERED: CALCIUM CHLORIDE 1,000 MG/10 ML SYRINGE IV STA (17:47)
[2018-05-10] MEDS ORDERED: ALBUTEROL NEB SOLN 5 MG/ML 20 ML/BOTTLE CONT NEB STA (17:49)
[2018-05-10] MEDS ORDERED: DEXTROSE 50% 25 GM/50 ML SYRINGE IV ONE (17:49)
[2018-05-10 17:50] LABS: PT Patient Result 10.7 SECS
[2018-05-10] MEDS ORDERED: CALCIUM CHLORIDE 1,000 MG/10 ML SYRINGE IV ONE (17:50)
[2018-05-10] MEDS ORDERED: SODIUM BICARBONATE 10 MEQ/10 ML SYRINGE IV ONE (17:50)
[2018-05-10] MEDS ORDERED: INSULIN REGULAR 100 UNIT/ML ONE (17:51)
[2018-05-10] MEDS ORDERED: SODIUM POLYSTYRENE SULFATE 15 GM/60 ML BOTTLE PO STA (18:00)
[2018-05-10] MEDS ORDERED: ATROPINE 1 MG/10 ML SYRINGE ONE (18:06)
[2018-05-10] MEDS ORDERED: ACETAMINOPHEN 325 MG TABLET PO PRN (18:44)
[2018-05-10] MEDS ORDERED: ALBUTEROL 2.5 MG/3 ML NEB RESP TX PRN (18:44)
[2018-05-10] MEDS ORDERED: CALCIUM ACETATE 667 MG CAPSULE PO SCH (18:44)
[2018-05-10] MEDS ORDERED: DEXTROSE 50% 25 GM/50 ML SYRINGE IV PRN (18:44)
[2018-05-10] MEDS ORDERED: ATROPINE 1 MG/10 ML SYRINGE IV PRN (18:44)
[2018-05-10] MEDS ORDERED: GLUCAGON 1 MG VIAL IM PRN (18:44)
[2018-05-10] MEDS ORDERED: ONDANSETRON 4 MG/2 ML VIAL IV PRN (18:44)
[2018-05-10 19:53] LABS: Thyroid Stimulating Hormone 2.1 uIU/ml (0.358-3.74)
[2018-05-10] MEDS: INSULIN REGULAR 100 UNIT/ML SUBCUT SCH (20:30)
[2018-05-10] MEDS: INSULIN GLARGINE 100 UNIT/ML SUBCUT SCH (20:34)
[2018-05-10] MEDS: ENOXAPARIN 30 MG/0.3 ML SYRINGE SUBCUT SCH (20:34)
[2018-05-11] MEDS ORDERED: SODIUM CHLORIDE 0.9% 250 ML IV ONE ×2 (05:07→07:07)
[2018-05-11 05:36] LABS: Potassium 7.9 MMOL/L (3.5-5.1)
[2018-05-11 06:09] LABS: Basophils % 0.6 % (0.0-0.8); Eosinophils # 0.2 10*3/uL (0.0-0.87); Eosinophils % 3.3 % (0.00-10.9); Hematocrit 39.4 VOL% (35.7-47.0); Immature Granulocytes % 0.4 %; Immature Granulocytes Absolute 0.02 #; Lymphocytes % 39.9 % (21.3-54.2); Mean Corpuscular HGB Conc 30.5 GM/DL (32-36); Mean Corpuscular Hemoglobin 27 PG (27-34); Mean Platelet Volume 12.4 FL (9.6-12.0); Monocytes # 0.5 10*3/uL (0.11-0.8); Monocytes % 10.6 % (1.7-12.7); Neutrophils # 2.3 10*3/uL (1.4-7.4); Neutrophils % 45.2 % (38.7-73.9); Platelet Count 155 T/CUMM (130-400); Red Blood Count 4.38 MC/CUMM (3.8-5.5); Red Cell Distribution Width 16.2 % (9.3-17.3); White Blood Count 5.1 T/CUMM (4-12)
[2018-05-11 06:27] LABS: Albumin 2.8 G/DL (3.4-5.0); Bilirubin,Total 0.5 MG/DL (0.2-1.0); Calcium 8.9 MG/DL (8.5-10.1); Osmolality,Calculated 279.1 MOS/KG (273-304); Total Protein 7.8 G/DL (6.4-8.3)
[2018-05-11 06:29] LABS: Potassium 6.6 MMOL/L (3.5-5.1)
[2018-05-11] MEDS: INSULIN REGULAR 100 UNIT/ML SUBCUT SCH ×4 (07:43→21:00)
[2018-05-11] MEDS: CALCIUM ACETATE 667 MG CAPSULE PO SCH ×3 (08:00→17:05)
[2018-05-11] MEDS: PANTOPRAZOLE 40 MG TABLET PO SCH (08:00)
[2018-05-11] MEDS: SODIUM POLYSTYRENE SULFATE 15 GM/60 ML BOTTLE PO SCH ×2 (08:19→14:43)
[2018-05-11] MEDS ORDERED: GABAPENTIN 300 MG CAPSULE PO SCH (21:00)
[2018-05-11] MEDS: ENOXAPARIN 30 MG/0.3 ML SYRINGE SUBCUT SCH (21:47)
[2018-05-11] MEDS: INSULIN GLARGINE 100 UNIT/ML SUBCUT SCH (21:47)
[2018-05-12] MEDS: SODIUM POLYSTYRENE SULFATE 15 GM/60 ML BOTTLE PO SCH ×3 (02:38→14:51)
[2018-05-12 04:37] LABS: Basophils % 0.6 % (0.0-0.8); Eosinophils # 0.2 10*3/uL (0.0-0.87); Eosinophils % 4.5 % (0.00-10.9); Hematocrit 42.3 VOL% (35.7-47.0); Hemoglobin 12.9 GM/DL (12.0-16.0); Immature Granulocytes % 0.2 %; Immature Granulocytes Absolute 0.01 #; Lymphocytes # 2.1 10*3/uL (1.4-4.0); Lymphocytes % 41.5 % (21.3-54.2); Mean Corpuscular HGB Conc 30.5 GM/DL (32-36); Mean Corpuscular Hemoglobin 27 PG (27-34); Mean Platelet Volume 11.9 FL (9.6-12.0); Monocytes # 0.6 10*3/uL (0.11-0.8); Monocytes % 12.5 % (1.7-12.7); Neutrophils # 2.1 10*3/uL (1.4-7.4); Neutrophils % 40.7 % (38.7-73.9); Platelet Count 139 T/CUMM (130-400); White Blood Count 5.1 T/CUMM (4-12)
[2018-05-12 05:09] LABS: Albumin 3.4 G/DL (3.4-5.0); Bilirubin,Total 0.5 MG/DL (0.2-1.0); Calcium 8.9 MG/DL (8.5-10.1); Osmolality,Calculated 274.2 MOS/KG (273-304); Potassium 4.9 MMOL/L (3.5-5.1); Total Protein 8.3 G/DL (6.4-8.3)
[2018-05-12] MEDS: CALCIUM ACETATE 667 MG CAPSULE PO SCH ×2 (08:44→14:39)
[2018-05-12] MEDS: PANTOPRAZOLE 40 MG TABLET PO SCH (08:44)
[2018-05-12] MEDS: INSULIN REGULAR 100 UNIT/ML SUBCUT SCH ×2 (08:45→14:40)
[2018-05-12 14:10] VITALS: BP 106/55
== END 2018-05-12 15:43 | disposition home or self-care (01) | DRG 640 ==
LOC: EDUNIT# → EDBD → N.ED 16:44 → N.EDINP 18:23 → SUATTDRO 18:23 → N.ICU 19:01 → N.TELES 05-11 18:47
PROVIDERS: ADMIT Internal Medicine; ATTEND Internal Medicine

== ENCOUNTER 2020-04-12 11:15 | Inpatient (IN) ==
[2020-04-12] MEDS ORDERED: ONDANSETRON 4 MG/2 ML VIAL IV STA (14:11)
[2020-04-12] MEDS ORDERED: PANTOPRAZOLE 40 MG VIAL IV STA (14:11)
[2020-04-12] MEDS ORDERED: DEXAMETHASONE 4 MG/1 ML VIAL IV ONE (14:30)
[2020-04-12] MEDS ORDERED: SODIUM CHLORIDE 0.9% 250 ML IV STA (14:37)
[2020-04-12 16:43] LABS: Basophils % 0.2 % (0.0-0.8); Hematocrit 39.2 VOL% (35.7-47.0); Hemoglobin 12.8 GM/DL (12.0-16.0); Immature Granulocytes % 0.3 %; Immature Granulocytes Absolute 0.02 #; Lymphocytes # 0.6 10*3/uL (1.4-4.0); Lymphocytes % 9.3 % (21.3-54.2); Mean Corpuscular HGB Conc 32.7 GM/DL (32-36); Mean Corpuscular Volume 92.5 FL (87-102); Mean Platelet Volume 12.4 FL (9.6-12.0); Monocytes % 5.9 % (1.7-12.7); Neutrophils % 84.3 % (38.7-73.9); Platelet Count 131 T/CUMM (130-400); Red Blood Count 4.24 MC/CUMM (3.8-5.5); Red Cell Distribution Width 14.3 % (9.3-17.3); White Blood Count 6.3 T/CUMM (4-12)
[2020-04-12 17:08] LABS: Albumin 3.8 G/DL (3.4-5.0); Bilirubin,Total 0.5 MG/DL (0.2-1.0); Calcium 9.2 MG/DL (8.5-10.1); Osmolality,Calculated 291.2 MOS/KG (273-304)
[2020-04-12 17:16] LABS: Atypical Lymphocytes 1+; Band Neutrophils 15 % (0-10); Lymphocytes 13 % (20-55); Metamyelocytes 2 %; Platelet Estimate Adequate; Segmented Neutrophils 66 % (50-85); Total Cells Counted 100
[2020-04-12 17:22] LABS: Ferritin 2693.7 ng/ml (8-252)
[2020-04-12] MEDS: ALBUTEROL INHALER 18 GM INH SCH ×3 (17:35→23:30)
[2020-04-12] MEDS ORDERED: GLUCAGON 1 MG VIAL IM PRN ×2 (18:21)
[2020-04-12] MEDS ORDERED: guaiFENesin/DM ER 600-30 MG TABLET PO PRN (18:21)
[2020-04-12] MEDS ORDERED: DEXTROSE 50% 25 GM/50 ML VIAL IV PRN ×2 (18:21)
[2020-04-12] MEDS ORDERED: ALUMINUM/MAGNES/SIMETH MAX STR 30 ML UDCUP PO PRN (18:21)
[2020-04-12] MEDS ORDERED: hydrALAZINE 20 MG/1 ML VIAL IV PRN (18:21)
[2020-04-12] MEDS ORDERED: MORPHINE 4 MG/1 ML VIAL IV PRN (18:21)
[2020-04-12] MEDS ORDERED: DOCUSATE SODIUM 100 MG CAPSULE PO PRN (18:21)
[2020-04-12] MEDS ORDERED: ZALEPLON 5 MG CAPSULE PO PRN (18:21)
[2020-04-12] MEDS ORDERED: AZITHROMYCIN INJ 500 MG in SODIUM CHLORIDE 0.9% 250 ML IV SCH (18:30)
[2020-04-12] MEDS ORDERED: SODIUM CHLORIDE 0.9% 1,000 ML IV SCH (18:30)
[2020-04-12] MEDS: ACETAMINOPHEN 325 MG TABLET PO PRN (19:50)
[2020-04-12] MEDS: cefTRIAXone 1,000 MG in SYRINGE 1 EACH IV SCH (19:50)
[2020-04-12] MEDS: INSULIN LISPRO 100 UNIT/ML SUBCUT SCH ×2 (21:24→22:17)
[2020-04-12] MEDS: ENOXAPARIN 30 MG/0.3 ML SYRINGE SUBCUT SCH (22:17)
[2020-04-12] MEDS: methylPREDNISolone SOD SUC 40 MG/1 ML VIAL IV SCH (22:18)
[2020-04-12] MEDS ORDERED: ALBUTEROL INHALER 18 GM INH PRN (22:30)
[2020-04-13] MEDS: SODIUM CHLORIDE 0.9% 1,000 ML IV SCH ×2 (00:08→21:38)
[2020-04-13] MEDS: methylPREDNISolone SOD SUC 40 MG/1 ML VIAL IV SCH ×3 (03:55→21:39)
[2020-04-13] MEDS: ALBUTEROL INHALER 18 GM INH SCH ×5 (03:55→18:15)
[2020-04-13 03:56] LABS: ABG HCO3 23.6 MMOL/L (20-26); ABG Oxygen Saturation 98.8 % (95-100); ABG PCO2 43.4 MM HG (35-48); ABG PH 7.361 (7.35-7.45); ABG TCO2 21.9 MMOL/L (23-27)
[2020-04-13 06:55] LABS: Basophils % 0.1 % (0.0-0.8); Hematocrit 35.9 VOL% (35.7-47.0); Hemoglobin 11.7 GM/DL (12.0-16.0); Immature Granulocytes % 0.7 %; Immature Granulocytes Absolute 0.05 #; Lymphocytes # 0.4 10*3/uL (1.4-4.0); Mean Corpuscular HGB Conc 32.6 GM/DL (32-36); Mean Platelet Volume 11.7 FL (9.6-12.0); Monocytes % 1.8 % (1.7-12.7); Neutrophils % 91.4 % (38.7-73.9); Platelet Count 119 T/CUMM (130-400); Red Blood Count 3.86 MC/CUMM (3.8-5.5); Red Cell Distribution Width 14.2 % (9.3-17.3)
[2020-04-13 07:09] LABS: Risk Ratio 2.52; VLDL CHOLESTEROL 27.6 MG/DL
[2020-04-13 07:28] LABS: Bilirubin,Direct 0.12 MG/DL (0.0-0.20); Bilirubin,Indirect 0.3 MG/DL (0.0-1.0); Bilirubin,Total 0.4 MG/DL (0.2-1.0); Total Protein 7.3 G/DL (6.4-8.3)
[2020-04-13 07:31] LABS: Band Neutrophils 14 % (0-10); Hypochromasia 1+; Lymphocytes 6 % (20-55); Metamyelocytes 4 %; Segmented Neutrophils 74 % (50-85); Total Cells Counted 100
[2020-04-13 07:32] LABS: Microcytosis 1+; Platelet Estimate Decreased
[2020-04-13] MEDS: PANTOPRAZOLE 40 MG TABLET PO SCH (10:10)
[2020-04-13] MEDS: AZITHROMYCIN 250 MG TABLET PO SCH (10:10)
[2020-04-13] MEDS: INSULIN LISPRO 100 UNIT/ML SUBCUT SCH ×4 (10:10→21:39)
[2020-04-13] MEDS: ONDANSETRON 4 MG/2 ML VIAL IV PRN ×2 (10:11→15:42)
[2020-04-13] MEDS ORDERED: diphenhydrAMINE 50 MG/1 ML VIAL IV PRN (16:38)
[2020-04-13] MEDS ORDERED: PHENOL 1.4% THROAT SPRAY 177 ML BOTTLE PO PRN (16:39)
[2020-04-13] MEDS: cefTRIAXone 1,000 MG in SYRINGE 1 EACH IV SCH (21:43)
[2020-04-13] MEDS: ENOXAPARIN 30 MG/0.3 ML SYRINGE SUBCUT SCH (21:43)
[2020-04-14] MEDS: ALBUTEROL INHALER 18 GM INH SCH ×7 (00:20→23:45)
[2020-04-14] MEDS: methylPREDNISolone SOD SUC 40 MG/1 ML VIAL IV SCH ×3 (04:00→21:55)
[2020-04-14 06:40] LABS: Hematocrit 33.6 VOL% (35.7-47.0); Hemoglobin 10.9 GM/DL (12.0-16.0); Immature Granulocytes % 0.4 %; Immature Granulocytes Absolute 0.02 #; Lymphocytes # 0.4 10*3/uL (1.4-4.0); Lymphocytes % 7.4 % (21.3-54.2); Mean Corpuscular HGB Conc 32.4 GM/DL (32-36); Mean Corpuscular Volume 91.8 FL (87-102); Mean Platelet Volume 12.3 FL (9.6-12.0); Monocytes % 2.3 % (1.7-12.7); Neutrophils % 89.9 % (38.7-73.9); Platelet Count 128 T/CUMM (130-400); Red Blood Count 3.66 MC/CUMM (3.8-5.5); Red Cell Distribution Width 14.2 % (9.3-17.3); White Blood Count 5.2 T/CUMM (4-12)
[2020-04-14 07:05] LABS: Calcium 8.1 MG/DL (8.5-10.1); Osmolality,Calculated 301.5 MOS/KG (273-304)
[2020-04-14 07:07] LABS: Band Neutrophils 2 % (0-10); Lymphocytes 4 % (20-55); Platelet Estimate Normal; Segmented Neutrophils 91 % (50-85)
[2020-04-14 07:08] LABS: Total Cells Counted 100
[2020-04-14] MEDS: ONDANSETRON 4 MG/2 ML VIAL IV PRN (08:12)
[2020-04-14] MEDS: AZITHROMYCIN 250 MG TABLET PO SCH (09:50)
[2020-04-14] MEDS: INSULIN LISPRO 100 UNIT/ML SUBCUT SCH ×4 (09:50→21:50)
[2020-04-14] MEDS: PANTOPRAZOLE 40 MG TABLET PO SCH (09:50)
[2020-04-14] MEDS ORDERED: ASCORBIC ACID 500 MG TABLET PO SCH (17:00)
[2020-04-14] MEDS ORDERED: CALCIUM ACETATE 667 MG CAPSULE PO SCH (17:00)
[2020-04-14] MEDS: amLODIPine 10 MG TABLET PO SCH (17:09)
[2020-04-14] MEDS: ASCORBIC ACID 500 MG TABLET PO SCH (21:51)
[2020-04-14] MEDS: GABAPENTIN 300 MG CAPSULE PO SCH (21:51)
[2020-04-14] MEDS: carvediloL 25 MG TABLET PO SCH (21:51)
[2020-04-14] MEDS: ENOXAPARIN 30 MG/0.3 ML SYRINGE SUBCUT SCH (21:51)
[2020-04-14] MEDS: cefTRIAXone 1,000 MG in SYRINGE 1 EACH IV SCH (21:54)
[2020-04-14] MEDS: ACETAMINOPHEN 325 MG TABLET PO PRN (23:45)
[2020-04-15] MEDS: ALBUTEROL INHALER 18 GM INH SCH ×6 (03:55→22:36)
[2020-04-15] MEDS: methylPREDNISolone SOD SUC 40 MG/1 ML VIAL IV SCH ×3 (04:55→20:31)
[2020-04-15 05:20] LABS: Basophils % 0.2 % (0.0-0.8); Hematocrit 34.9 VOL% (35.7-47.0); Hemoglobin 11.5 GM/DL (12.0-16.0); Immature Granulocytes % 0.9 %; Immature Granulocytes Absolute 0.09 #; Lymphocytes # 0.3 10*3/uL (1.4-4.0); Lymphocytes % 3.4 % (21.3-54.2); Mean Corpuscular Volume 90.4 FL (87-102); Mean Platelet Volume 12.5 FL (9.6-12.0); Monocytes % 2.1 % (1.7-12.7); Neutrophils % 93.4 % (38.7-73.9); Platelet Count 139 T/CUMM (130-400); Red Blood Count 3.86 MC/CUMM (3.8-5.5); Red Cell Distribution Width 13.9 % (9.3-17.3); White Blood Count 9.6 T/CUMM (4-12)
[2020-04-15 05:41] LABS: Calcium 8.9 MG/DL (8.5-10.1); Osmolality,Calculated 295.4 MOS/KG (273-304)
[2020-04-15 05:45] LABS: Eosinophils 1 % (0-10); Lymphocytes 2 % (20-55); Segmented Neutrophils 95 % (50-85); Total Cells Counted 100
[2020-04-15 05:46] LABS: Hypochromasia 1+; Microcytosis 1+; Platelet Estimate Adequate
[2020-04-15] MEDS ORDERED: CALCIUM ACETATE 667 MG CAPSULE PO SCH (08:00)
[2020-04-15] MEDS: SEVELAMER CARBONATE 800 MG TABLET PO SCH ×3 (08:53→17:11)
[2020-04-15] MEDS: INSULIN LISPRO 100 UNIT/ML SUBCUT SCH ×4 (09:31→20:30)
[2020-04-15] MEDS: AZITHROMYCIN 250 MG TABLET PO SCH (09:32)
[2020-04-15] MEDS: CHOLECALCIFEROL 1,000 UNIT TABLET PO SCH (09:32)
[2020-04-15] MEDS: PANTOPRAZOLE 40 MG TABLET PO SCH (09:32)
[2020-04-15] MEDS: ASCORBIC ACID 500 MG TABLET PO SCH ×2 (09:32→20:32)
[2020-04-15] MEDS: amLODIPine 10 MG TABLET PO SCH (09:32)
[2020-04-15] MEDS: HYDROmorphone 2 MG/1 ML VIAL IV PRN (09:32)
[2020-04-15] MEDS: carvediloL 25 MG TABLET PO SCH ×2 (09:32→20:32)
[2020-04-15] MEDS ORDERED: DEXTROSE 5% NACL 0.9% 1,000 ML IV SCH (11:00)
[2020-04-15] MEDS ORDERED: VANCOMYCIN INJ 750 MG in SODIUM CHLORIDE 0.9% 250 ML IV PRN (11:03)
[2020-04-15] MEDS ORDERED: VANCOMYCIN INJ 1,750 MG in SODIUM CHLORIDE 0.9% 500 ML IV ONE (12:00)
[2020-04-15] MEDS: MEROPENEM 500 MG in SODIUM CHLORIDE 0.9% 100 ML IV SCH (13:28)
[2020-04-15] MEDS: ZINC GLUCONATE 50 MG TABLET PO SCH (13:29)
[2020-04-15] MEDS: GABAPENTIN 300 MG CAPSULE PO SCH (20:32)
[2020-04-15] MEDS: ENOXAPARIN 30 MG/0.3 ML SYRINGE SUBCUT SCH (23:23)
[2020-04-16] MEDS: methylPREDNISolone SOD SUC 40 MG/1 ML VIAL IV SCH ×2 (04:12→16:31)
[2020-04-16] MEDS: ALBUTEROL INHALER 18 GM INH SCH ×6 (04:12→22:33)
[2020-04-16 05:26] LABS: Osmolality,Calculated 289.4 MOS/KG (273-304)
[2020-04-16] MEDS: INSULIN LISPRO 100 UNIT/ML SUBCUT SCH ×4 (09:02→21:50)
[2020-04-16] MEDS: AZITHROMYCIN 250 MG TABLET PO SCH (09:03)
[2020-04-16] MEDS: PANTOPRAZOLE 40 MG TABLET PO SCH (09:03)
[2020-04-16] MEDS: ASCORBIC ACID 500 MG TABLET PO SCH ×2 (09:03→21:07)
[2020-04-16] MEDS: carvediloL 25 MG TABLET PO SCH ×2 (09:03→21:07)
[2020-04-16] MEDS: amLODIPine 10 MG TABLET PO SCH (09:03)
[2020-04-16] MEDS: ZINC GLUCONATE 50 MG TABLET PO SCH (09:03)
[2020-04-16] MEDS: CHOLECALCIFEROL 1,000 UNIT TABLET PO SCH (09:03)
[2020-04-16] MEDS: SEVELAMER CARBONATE 800 MG TABLET PO SCH ×3 (09:03→16:31)
[2020-04-16] MEDS: MEROPENEM 500 MG in SODIUM CHLORIDE 0.9% 100 ML IV SCH (11:13)
[2020-04-16] MEDS: INSULIN GLARGINE 100 UNIT/ML SUBCUT SCH ×2 (12:49→21:50)
[2020-04-16] MEDS: ONDANSETRON 4 MG/2 ML VIAL IV PRN (12:56)
[2020-04-16] MEDS: ENOXAPARIN 30 MG/0.3 ML SYRINGE SUBCUT SCH (21:07)
[2020-04-16] MEDS: GABAPENTIN 300 MG CAPSULE PO SCH (21:07)
[2020-04-17] MEDS: ALBUTEROL INHALER 18 GM INH SCH ×6 (03:57→22:13)
[2020-04-17] MEDS: methylPREDNISolone SOD SUC 40 MG/1 ML VIAL IV SCH (04:57)
[2020-04-17] MEDS: INSULIN LISPRO 100 UNIT/ML SUBCUT SCH ×4 (11:08→22:13)
[2020-04-17] MEDS: carvediloL 25 MG TABLET PO SCH ×2 (11:09→22:12)
[2020-04-17] MEDS: amLODIPine 10 MG TABLET PO SCH (11:09)
[2020-04-17] MEDS: INSULIN GLARGINE 100 UNIT/ML SUBCUT SCH ×2 (11:09→22:12)
[2020-04-17] MEDS: SEVELAMER CARBONATE 800 MG TABLET PO SCH ×3 (11:09→17:22)
[2020-04-17] MEDS: PANTOPRAZOLE 40 MG TABLET PO SCH (11:09)
[2020-04-17] MEDS: AZITHROMYCIN 250 MG TABLET PO SCH (11:10)
[2020-04-17] MEDS: ASCORBIC ACID 500 MG TABLET PO SCH ×2 (11:10→22:13)
[2020-04-17] MEDS: MEROPENEM 500 MG in SODIUM CHLORIDE 0.9% 100 ML IV SCH (11:10)
[2020-04-17] MEDS: ZINC GLUCONATE 50 MG TABLET PO SCH (11:10)
[2020-04-17] MEDS: CHOLECALCIFEROL 1,000 UNIT TABLET PO SCH (11:10)
[2020-04-17] MEDS: HYDROmorphone 2 MG/1 ML VIAL IV PRN (13:33)
[2020-04-17] MEDS ORDERED: VANCOMYCIN INJ 750 MG in SODIUM CHLORIDE 0.9% 250 ML IV ONE (17:00)
[2020-04-17] MEDS: ENOXAPARIN 30 MG/0.3 ML SYRINGE SUBCUT SCH (22:13)
[2020-04-17] MEDS: GABAPENTIN 300 MG CAPSULE PO SCH (22:13)
[2020-04-18] MEDS: ALBUTEROL INHALER 18 GM INH SCH ×6 (03:12→22:24)
[2020-04-18 04:04] LABS: Allen Test Positive
[2020-04-18 04:11] LABS: ABG Base Excess -1.1 MMOL/L (-2.5-2.5); ABG HCO3 23.5 MMOL/L (20-26); ABG PCO2 38.1 MM HG (35-48); ABG PH 7.397 (7.35-7.45); ABG PO2 85.7 MM HG (80-95); ABG TCO2 20.9 MMOL/L (23-27)
[2020-04-18 07:06] LABS: Basophils % 0.1 % (0.0-0.8); Hematocrit 36.9 VOL% (35.7-47.0); Hemoglobin 12.3 GM/DL (12.0-16.0); Immature Granulocytes % 4.6 %; Immature Granulocytes Absolute 0.36 #; Lymphocytes # 0.5 10*3/uL (1.4-4.0); Lymphocytes % 5.9 % (21.3-54.2); Mean Corpuscular HGB Conc 33.3 GM/DL (32-36); Mean Corpuscular Volume 89.3 FL (87-102); Mean Platelet Volume 12.8 FL (9.6-12.0); Monocytes % 5.7 % (1.7-12.7); Neutrophils % 83.7 % (38.7-73.9); Platelet Count 164 T/CUMM (130-400); Red Blood Count 4.13 MC/CUMM (3.8-5.5); Red Cell Distribution Width 13.8 % (9.3-17.3); White Blood Count 7.8 T/CUMM (4-12)
[2020-04-18 07:30] LABS: Calcium 8.9 MG/DL (8.5-10.1); Osmolality,Calculated 285.9 MOS/KG (273-304)
[2020-04-18 08:16] LABS: Hypochromasia 1+; Lymphocytes 7 % (20-55); Segmented Neutrophils 87 % (50-85); Total Cells Counted 100
[2020-04-18 08:17] LABS: Microcytosis 1+; Platelet Estimate Adequate
[2020-04-18] MEDS: INSULIN LISPRO 100 UNIT/ML SUBCUT SCH ×4 (09:10→21:00)
[2020-04-18] MEDS: amLODIPine 10 MG TABLET PO SCH (09:10)
[2020-04-18] MEDS: CHOLECALCIFEROL 1,000 UNIT TABLET PO SCH (09:10)
[2020-04-18] MEDS: ASCORBIC ACID 500 MG TABLET PO SCH ×2 (09:10→21:00)
[2020-04-18] MEDS: PANTOPRAZOLE 40 MG TABLET PO SCH (09:10)
[2020-04-18] MEDS: carvediloL 25 MG TABLET PO SCH ×2 (09:10→21:00)
[2020-04-18] MEDS: methylPREDNISolone SOD SUC 40 MG/1 ML VIAL IV SCH (09:10)
[2020-04-18] MEDS: ZINC GLUCONATE 50 MG TABLET PO SCH (09:10)
[2020-04-18] MEDS: SEVELAMER CARBONATE 800 MG TABLET PO SCH ×3 (12:10→17:09)
[2020-04-18] MEDS: INSULIN GLARGINE 100 UNIT/ML SUBCUT SCH ×2 (12:59→21:00)
[2020-04-18] MEDS: MEROPENEM 500 MG in SODIUM CHLORIDE 0.9% 100 ML IV SCH (19:11)
[2020-04-18] MEDS ORDERED: SEVELAMER CARBONATE 800 MG TABLET PO PRN ×2 (20:44→20:47)
[2020-04-18] MEDS: GABAPENTIN 300 MG CAPSULE PO SCH (21:00)
[2020-04-18] MEDS: ENOXAPARIN 30 MG/0.3 ML SYRINGE SUBCUT SCH (21:00)
[2020-04-19] MEDS: ALBUTEROL INHALER 18 GM INH SCH ×5 (02:00→18:00)
[2020-04-19 05:52] LABS: Calcium 8.8 MG/DL (8.5-10.1); Osmolality,Calculated 295.7 MOS/KG (273-304)
[2020-04-19] MEDS: SEVELAMER CARBONATE 800 MG TABLET PO SCH ×3 (07:50→16:31)
[2020-04-19] MEDS: ONDANSETRON 4 MG/2 ML VIAL IV PRN ×2 (07:50→20:46)
[2020-04-19] MEDS: INSULIN LISPRO 100 UNIT/ML SUBCUT SCH ×4 (08:19→20:45)
[2020-04-19] MEDS: CHOLECALCIFEROL 1,000 UNIT TABLET PO SCH (09:49)
[2020-04-19] MEDS: amLODIPine 10 MG TABLET PO SCH (09:49)
[2020-04-19] MEDS: PANTOPRAZOLE 40 MG TABLET PO SCH (09:49)
[2020-04-19] MEDS: ASCORBIC ACID 500 MG TABLET PO SCH ×2 (09:49→20:46)
[2020-04-19] MEDS: ZINC GLUCONATE 50 MG TABLET PO SCH (09:50)
[2020-04-19] MEDS: carvediloL 25 MG TABLET PO SCH ×2 (09:50→20:45)
[2020-04-19] MEDS: INSULIN GLARGINE 100 UNIT/ML SUBCUT SCH ×2 (09:51→20:46)
[2020-04-19] MEDS: methylPREDNISolone SOD SUC 40 MG/1 ML VIAL IV SCH (09:51)
[2020-04-19] MEDS: HYDROmorphone 2 MG/1 ML VIAL IV PRN (15:14)
[2020-04-19] MEDS: GABAPENTIN 300 MG CAPSULE PO SCH (20:46)
[2020-04-19 21:07] VITALS: BP 112/52
== END 2020-04-19 21:25 | disposition home or self-care (01) | DRG 177 ==
LOC: N.ED 11:15 → N.EDINP 18:21 → SUATTDRO 18:21 → N.EDINP 20:25 → N.2E 21:28
PROVIDERS: ADMIT Internal Medicine; ATTEND Internal Medicine